=== PATIENT | female | born 1975 | race Caucasian/White ===

== ENCOUNTER 2018-09-12 18:13 | Emergency (ER) | payer MEDICAID ==
[~2018-09-12] VITALS: Ht 157.5 cm; Wt 78.9 kg
[~2018-09-12 18:13] MED LIST: CANA1TAB2 PO; CLIN300C11 PO; IBUP-1971 PO; SACC250C3 PO
[2018-09-12 18:32] VITALS: BP_SYST 127
[2018-09-12] MEDS ORDERED: ACETAMINOPHEN 500 MG TABLET PO ONE (20:00)
[2018-09-12 20:31] LABS: STREPTOCOCCUS A SCREEN (RAPID) NEGATIVE (NEGATIVE)
[2018-09-12 20:44] LABS: INFLUENZA A&B ANTIGEN SCREEN NEGATIVE FOR A & B (NEGATIVE)
== END 2018-09-12 20:30 | disposition left against medical advice (07) ==
LOC: SED 18:13
DX: J02.9 Acute pharyngitis, unspecified (principal); H92.03 Otalgia, bilateral; R51 Headache; R05 Cough; M79.10 Myalgia, unspecified site; R11.0 Nausea; N89.8 Other specified noninflammatory disorders of vagina; E11.9 Type 2 diabetes mellitus without complications; Z79.899 Other long term (current) drug therapy; Z53.20 Procedure and treatment not carried out because of patient's decision for unspecified reasons
CPT/HCPCS: 36415; 86403; 86710; 87081; 99283

== ENCOUNTER 2022-02-27 22:02 | Emergency (ER) | payer BC, MEDICAID ==
[~2022-02-27] VITALS: Ht 157.5 cm; Wt 77.1 kg
[~2022-02-27 22:02] MED LIST changes: +CLIN-142 PO; -CLIN300C11 PO
[2022-02-27 22:18] VITALS: BP_SYST 164
--- NOTE | 2022-02-27 22:22 | NUR ---
PATIENT C/O ABDOMINAL PAIN WITH SOB X 1 DAY. NAUSEA BUT NO VOMITING.
[2022-02-27 23:29] LABS: BASOPHILS % (AUTO) 0.3 % (0.0-2.0); EOSINOPHILS # (AUTO) 0.1 K/uL (0.0-0.4); EOSINOPHILS % (AUTO) 0.6 % (0.0-4.0); HEMATOCRIT 44.9 % (36-48); HEMOGLOBIN 15.5 g/dL (12.0-16.0); LYMPHOCYTES # (AUTO) 2.1 K/uL (1.0-5.5); LYMPHOCYTES % (AUTO) 15.9 % (20.5-51.5); MEAN CORPUSCULAR HEMOGLOBIN 28 pg (27-31); MEAN CORPUSCULAR HGB CONC 35 % (32-36); MEAN CORPUSCULAR VOLUME 80 fL (79.0-98.0); MONOCYTES % (AUTO) 7.3 % (1.7-9.3); NEUTROPHILS # (AUTO) 10.2 K/uL (1.8-7.7); NEUTROPHILS % (AUTO) 75.9 % (40.0-70.0); PLATELET COUNT (AUTO) 329 K/uL (130-430); RED BLOOD CELL COUNT(AUTO) 5.59 MIL/uL (4.2-6.2); RED CELL DISTRIBUTION WIDTH 12.6 % (9.0-15.0); WHITE BLOOD COUNT (AUTO) 13.4 K/uL (4.8-10.8)
[2022-02-28 00:08] LABS: CALCIUM 9.4 mg/dL (8.4-11.0); POTASSIUM 3.6 mmol/L (3.5-5.1)
[2022-02-28 00:09] LABS: CREATININE 0.75 mg/dL (0.55-1.30); TOTAL BILIRUBIN 0.8 mg/dL (0.0-1.0)
[2022-02-28 00:10] LABS: ALBUMIN 4.4 g/dL (3.4-4.8)
--- NOTE | 2022-02-28 00:23 | NUR ---
Pt to bed 3 w/ c/o LLQ/RLQ abdominal pain x 1 day w/ midsternal chest pain 02/18. Pt states +N/+V, denies vaginal bleeding. Respirations mildly tachypneic. Pt on traffic monitor specialist and pulse oximetry at this time. Normal skin color for ethnicity. Pt denies fevers, body aches, and chills. Side rails up. Bed in low position. Wheels locked.
--- NOTE | 2022-02-28 00:30 | NUR ---
Pt c/o Abdominal pain and N/V. MD made aware. Refer to [facility].
--- NOTE | 2022-02-28 00:48 | NUR ---
CHELSI TRUJILLO URINE COLLECTED AND SENT TO LAB
[2022-02-28 01:15] LABS: BILIRUBIN,URINE NEGATIVE (NEGATIVE); BLOOD, URINE 2+ (NEGATIVE); COLOR,URINE YELLOW (YELLOW); GLUCOSE,URINE 3+ (NEGATIVE); KETONES,URINE 2+ (NEGATIVE); LEUKOCYTE ESTERASE ,URINE NEGATIVE (NEGATIVE); NITRITE, URINE NEGATIVE (NEGATIVE); PH,URINE 5.5 (5.0-8.0); PROTEIN URINE 2+ (NEGATIVE); UROBILINOGEN,URINE 0.2 (0.2-1.0)
[2022-02-28] MEDS ORDERED: NACL 0.9% 1,000 ML IV ONE (01:15)
[2022-02-28] MEDS ORDERED: ONDANSETRON HCL 4 MG/2 ML VIAL IVP ONE ×2 (01:15)
[2022-02-28] MEDS ORDERED: KETOROLAC TROMETHAMINE 30 MG VIAL IVP ONE (01:15)
--- NOTE | 2022-02-28 01:15 | NUR ---
MD Guzman at bedside
[2022-02-28 01:19] LABS: CLARITY/URINE SLIGHTLY CLOUDY (CLEAR)
--- NOTE | 2022-02-28 02:30 | NUR ---
Pt states chest pain resolved, but abdominal pain remains. MD Guzman made aware. Refer to [facility] for orders.
[2022-02-28] MEDS ORDERED: MAG HYDROX/AL HYDROX/SIMETH 30 ML, LIDOCAINE VISCOUS 2% 15ML (PO) 15 ML, DICYCLOMINE HC... PO ONE ×3 (02:45)
--- NOTE | 2022-02-28 04:34 | NUR ---
Pt resting comfortably in bed at this time with eyes closed and NAD. On media monitor and pulse oximetry. Respirations even and unlabored. Normal skin color for ethnicity. Side rails up. Bed in low position. Wheels locked.
--- NOTE | 2022-02-28 05:30 | NUR ---
Pt awake at this time. Pain level assessed s/p GI cocktail and patient states "it knocked me out earlier and I was able to sleep, but now my pain is back again". Pt states pain is now to lower midline abdomen and periumbilical abdomen 02/18. MD Guzman made aware.
--- NOTE | 2022-02-28 05:56 | NUR ---
MD Guzman at bedside to perform pelvic exam w/ Samreen RN as security support analyst.
[2022-02-28 05:58] LABS: WBC,URINE 0-3 /HPF (0-3)
[2022-02-28 05:59] LABS: BACTERIA,URINE None Seen /HPF (None Seen); MUCUS,URINE None Seen /LPF (None Seen)
--- NOTE | 2022-02-28 06:05 | NUR ---
Pelvic exam set up for Dr. Guzman myself. Patient placed on bed mondragon unerside down for tilt, covered by towel to protect bottom and sheet provide for privacy. Dr. Guzman performed pelvic exam per protocol with myself as play reader.
[2022-02-28] MEDS ORDERED: MORPHINE 4 MG INJ. 4 MG/ML VIAL IVP ONE ×3 (06:15→06:30)
[2022-02-28 06:20] VITALS: BP_SYST 141
--- NOTE | 2022-02-28 06:24 | NUR ---
Pt requesting water at this time. Pt informed I will speak to MD regarding request due to patient's current chief complaint of abdominal pain.
--- NOTE | 2022-02-28 06:26 | NUR ---
MD Guzman made aware of patient's request for water. MD Guzman states it is okay for patient to receive water.
--- NOTE | 2022-02-28 06:27 | NUR ---
While going to staff break room to get patient water, patient suddenly shouts "Can I get some water right now?!" and then immediately climbed out of bed and began walking towards the nursing station demanding water. Patient given two cups of water.
--- NOTE | 2022-02-28 06:28 | NUR ---
Pt requested for me to remove her blood pressure cuff at this time. Blood pressure cuff removed.
--- NOTE | 2022-02-28 06:35 | NUR ---
Patient witnessed by myself and Samreen RN pulling back curtain at this time and pointing phone in the direction of the nursing station with camera facing towards nursing station. Security called at this time and informed them of patient potentially taking photos of nursing station.
--- NOTE | 2022-02-28 06:47 | NUR ---
Security at bedside at this time.
--- NOTE | 2022-02-28 06:50 | NUR ---
PATIENT CONFRONTED BY SECURITY AND LEATHER CLEANER REGARDING TAKING PICTURES IN THE HOSPITAL WITH HIPPA LAWS. 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 STAFF EXPLAINED LAWS AND THE NEED TO DELETE PICTURES. PATIENT STATED "I CAN LEAVE ANYTIME I WANT IF YOU WANT ME TO" HOSPITAL STAFF EXPLAINED TO PATIENT, "YOU ARE ABLE TO LEAVE AT ANY TIME." SECURITY EXPLAINED WE WILL GET DISCHARGE PAPERWORK FOR HER.
--- NOTE | 2022-02-28 06:57 | NUR ---
PATIENT SEEN WALKING OUT, SECURITY AND OUTBOUND SUPERVISOR ATTEMPTED TO STOP PATIENT TO REMOVE PATIENT. PATIENT REFUSING TO TAKE OUT IV, PATIENT YELLING AND BELIGERANT AT STAFF.
--- NOTE | 2022-02-28 06:59 | NUR ---
PATIENT FINALLY STOPPED WHILE IN CAR AND DEMANDED STAFF TO TAKE OUT HER IV. IV SAFELY REMOVED AT THIS TIME. PATIENT ELOPED WITHOUT SIGNING AMA FORMS. CHARGE AND MD AWARE. PATIENT SEEN DRIVING SAFELY OFF.
== END 2022-02-28 07:03 | disposition left against medical advice (07) ==
LOC: SED 22:02
DX: R10.2 Pelvic and perineal pain (principal); E11.9 Type 2 diabetes mellitus without complications; K59.00 Constipation, unspecified; R11.2 Nausea with vomiting, unspecified; Z79.899 Other long term (current) drug therapy
CPT/HCPCS: 99285; 80053; 83690; 85025; 84484; 36415; 93005; 81003; 81000; 74176; 96374; 76830; 76857; 71045; 96375; 96361; 74021; 76376; 81025; J2001; J1885; J2405; J2270; J7030